=== PATIENT | male | born 1940 | race Caucasian/White ===

== ENCOUNTER 2023-08-28 15:34 | Outpatient (CLI) | payer MEDICARE | END 2023-08-28 15:35 | disposition home or self-care (01) | LOC: CSHMRI 15:34 | PROVIDERS: ATTEND Orthopaedic Surgery | DX: S46.012A Strain of muscle(s) and tendon(s) of the rotator cuff of left shoulder, initial encounter (principal); M67.88 Other specified disorders of synovium and tendon, other site; M19.012 Primary osteoarthritis, left shoulder; M25.412 Effusion, left shoulder ==